=== PATIENT | male | born 1995 | race Caucasian/White ===

== ENCOUNTER 2020-09-26 16:50 | Emergency (ER) | payer SELFPAY ==
[2020-09-26 17:09] VITALS: BP 124/61; PULSE 118; RESP 18; TEMP 36.4; O2SAT 98; BMI 26.6
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
[2020-09-26] MEDS: acetaminophen 500 mg Tablet 1000 MG PO (17:39)
[2020-09-26 19:08] VITALS: BP 124/80; PULSE 87; RESP 14; O2SAT 99
--- NOTE | 2020-09-30 07:52 | DCPLANNER ---
business resiliency manager had message to schedule a follow up appointment for patient with Dr. Hurtado, ENT. business resiliency manager faxed patients information to the clinic, will call for appointment information. Clinic will call patient with appointment information.
--- NOTE | 2020-10-03 13:14 | DCPLANNER ---
Dr. Harper office called child support case officer stating that when clinic called patient to schedule a follow up appointment that patient denied the appointment at this time due to financial reasons.
== END 2020-09-26 19:08 | disposition home or self-care (01) ==
PROVIDERS: Emergency Provider Physician Assistant
DX: S02.2XXA Fracture of nasal bones, initial encounter for closed fracture (principal); S00.83XA Contusion of other part of head, initial encounter; R51.9 Headache, unspecified; Y04.2XXA Assault by strike against or bumped into by another person, initial encounter
CPT/HCPCS: 12345; 70450; 70486; 99281; 99283